=== PATIENT | male | born 1970 | race Caucasian/White ===

== ENCOUNTER 2025-01-23 12:43 | Outpatient (REF) | payer OTHER, SELFPAY ==
[2025-01-23 18:28] LABS: MANUAL DIFF FLAG NO
[2025-01-23 18:34] LABS: Hematocrit 46.4 % (42.0-52.0); Hemoglobin 15.7 g/dl (14.0-18.0); Imm Gran Abs Auto 0.02 X10*3/uL (0.00-0.03); Imm Gran Pct Auto 0.2 % (0.0-0.4); Lymphocytes Absolute Auto 4.1 X10*3/uL (1.2-4.9); Mean Corpuscular HGB Conc 33.8 g/dl (31.0-36.0); Mean Corpuscular Hemoglobin 31.0 pg (27.0-33.0); Mean Corpuscular Volume 91.7 fL (80.0-98.0); NRBC Abs Auto 0.000 X10*3/uL (0.0-0.012); NRBC Pct Auto 0.0 /100WBC (0.0-0.2); Platelet Count 368 X10*3/uL (160-400); Red Blood Count 5.06 X10*6/uL (4.60-5.80); White Blood Count 9.9 X10*3/uL (4.8-10.8)
[2025-01-23 18:40] LABS: Appearance Urine Clear; Glucose Urine UA Negative (Negative); PH 6.5 (5.0-9.0); Specific Gravity - Urine 1.020 (1.005-1.025)
[2025-01-23 18:57] LABS: Alanine Aminotransferase 52 U/L (0-40); Albumin Level 4.6 g/dL (3.5-5.0); Alkaline Phosphatase 110 U/L (39-117); Anion Gap 11 (12-20); Aspartate Amino Transferase 37 U/L (5-37); Blood Urea Nitrogen 10 mg/dL (9-16); Calcium 9.3 mg/dL (8.4-10.2); Carbon Dioxide 22 mmol/L (22-29); Chloride 110 mmol/L (96-108); Cholesterol 302 mg/dL (<200); Estimated Glomerular Filt Rate > 60; HDL Cholesterol 43 mg/dL (>40); Magnesium 2.2 mg/dL (1.6-2.6); Potassium 4.2 mmol/L (3.3-5.1); Sodium 139 mmol/L (135-145); Total Protein 7.1 g/dL (6.5-8.0); Triglycerides 161 mg/dL (<150)
[2025-01-23 19:18] LABS: Folate 11.6 ng/mL (> or = 4.0); Vitamin B12 392 pg/mL (200-900)
[2025-01-24 13:26] LABS: HBS Num1 0.24 mIU/mL (0-7.99); HIV Num 1 0.04 S/CO (0.00-0.99); ~HepC Num1 0.05 S/CO (0.00-0.79); ~Hepatitis B Surface Antibody NONREACTIVE (Nonreactive); ~Hepatitis C Antibody Nonreactive (Nonreactive)
[2025-01-25 03:55] LABS: HBsAGNum1 0.39 S/CO (0.00-0.99); Hepatitis B Surface Antigen Negative (Negative)
[2025-01-28 06:09] LABS: VITAMIN D (1,25 OH) D3 36 pg/mL; Vit D (1,25-Dihydroxy) Total 36 pg/mL (18-72); Vitamin D (1,25 OH) D2 <8 pg/mL
== END 2025-01-23 12:44 | disposition home or self-care (01) ==
LOC: HO.HKASLDS 12:43
PROVIDERS: PCP Student in an Organized Health Care Education/Training Program; Visit Provider Student in an Organized Health Care Education/Training Program
DX: E66.3 Overweight (principal); F10.21 Alcohol dependence, in remission; M65.30 Trigger finger, unspecified finger; G56.00 Carpal tunnel syndrome, unspecified upper limb; F17.210 Nicotine dependence, cigarettes, uncomplicated; F32.A Depression, unspecified; F41.9 Anxiety disorder, unspecified; R03.0 Elevated blood-pressure reading, without diagnosis of hypertension; D17.9 Benign lipomatous neoplasm, unspecified; Z98.890 Other specified postprocedural states; Z68.27 Body mass index [BMI] 27.0-27.9, adult
CPT/HCPCS: 36415; 80053; 80061; 81003; 82607; 82652; 82746; 83036; 83735; 84443; 85025; 86706; 86803; 87340; 87389; 99202

== ENCOUNTER 2025-01-23 12:43 | Outpatient (AMB) | payer MEDICAID, SELFPAY ==
--- NOTE | 2025-01-23 12:57 | A.OFFPC_ITS ---
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 Transitional Care Required: No Accompanied by: Self / Same As Patient Allergies meperidine (From Demerol) Adverse Reaction (Unknown, Verified 01/23/25 13:08) ill Tobacco use date assessed: 01/23/25 Dental Screening Dental Screen Date: 01/23/25 Did you have a dental visit in the last 12 months?: Yes Did you have a dental problem in the last 6 months where you did not have access to dental care?: No Was dental information given to patient?: No HPI HPI Comments History of Present Illness Details Consent Patient was informed and verbally consented to the use of an ambient scribe for clinic note documentation during this visit. History of Present Illness The patient is a 54-year-old male presenting with a wellness visit and management of chronic conditions, including trigger finger and carpal tunnel syndrome. Trigger finger: The patient reports bilateral trigger finger, with the right hand currently clicking and the left hand on its way to clicking. Cortisone injections have been effective in managing symptoms in the past. The condition worsens with c older weather, leading to increased stiffness and discomfort. Carpal tunnel syndrome: The patient has a history of carpal tunnel syndrome, having undergone surgery twice on the right hand. The patient reports regaining sensation post-surgery, but symptoms have recurred over time. The patient has received wrist injections for symptom management. History of multiple hand fractures: The patient has a history of multiple hand fractures, including fractures from punching a wall and skateboarding accidents. The patient has been advised that surgical intervention could restructure the hand but would require a six-month recovery period in a cast, which the patient is unwilling to undergo. Tobacco use disorder: The patient has a long history of smoking, currently smoking a pack to a pack and a half per day. The patient expresses a desire to quit smoking and has previously attempted cessation using patches and lozenges. Alcohol use disorder in remission: The patient is in recovery from alcohol use disorder, attending Alcoholics Anonymous meetings daily and maintaining sobriety for 85 days. The patient has a history of relapses but is currently supported by a fellowship and a sponsor. Depression: The patient reports experiencing depression, exacerbated by a recent breakup and relocation. The patient is currently engaged in therapy sessions to manage symptoms. Anxiety: The patient reports anxiety, which contributes to smoking habits as a coping mechanism. The patient is receiving therapy to address anxiety symptoms. Lipoma: The patient has a lipoma near the left ear, which has grown slightly over time but is not causing significant concern. 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 - Housing: Recently moved from [place] to a farm in [facility]. - Substance use: History of tobacco use, currently smoking a pack to a pack and a half per day. In recovery from alcohol use disorder, attending AA meetings daily. - Exercise: Engages in skateboarding, th ough with caution due to past injuries. Review of Systems - Musculoskeletal: Reports bilateral tri gger finger and history of carpal tunnel syndrome. - Dermatological: Reports a lipoma near the left ear. - Psychological: Reports depression and anxiety. - Respiratory: Denies snoring or waking up in the middle of the night. - Gastrointestinal: Denies gastroesophag eal reflux. 10-point ROS reviewed and negative excep t as noted in HPI Past Medical History - Carpal tunnel syndrome - History of multiple hand fractures - History of diverticulitis - Tobacco use disorder - Alcohol use disorder in remission - Depression - Anxiety Health Maintenance - Colon cancer screening with stool test , last performed a year ago, next due in two years. Physical Exam General: Well-appearing, in no acute distress. Vital signs: Within normal limits. HEENT: Normocephalic, atraumatic. PERRLA, EOMI. Conjunctiva clear, sclera anicteric. Oropharynx clear, mucous membranes moist. TMs intact bilaterally. Notable for a growth on the left side by the ear, progressively getting a little bigger. Neck: Supple, no lymphadenopathy, no thyromegaly, no JVD or carotid bruits. Cardiovascular: RRR, normal S1/S2, no murmurs, rubs, or gallops. Peripheral pulses 2+ and symmetric. No edema. Respiratory: Lungs clear to auscultation bilaterally, no wheezes, rales, or rhonchi. Normal effort. Abdomen: Soft, non-tender, non-distended. Normoactive bowel sounds. No hepatosplenomegaly, no masses. MSK: Full range of motion, no joint swelling or deformity. Notable for bilateral trigger finger and history of carpal tunnel syndrome with previous surgeries and injections. Right wrist with history of multiple fractures and injections. Skin: Warm, dry, intact. No rashes, lesions, or pallor. Neuro: Alert and oriented x3. Cranial nerves II-XII intact. Strength 5/5 throughout. Sensation intact. Reflexes 2+ symmetric. Normal coordination and gait. Psych: Appropriate mood and affect. Normal judgment and insight. History of de pression and anxiety, currently in therapy. Plan 1. Trigger Finger - Plan to administer cortisone injection s during the follow-up visit to manage symptoms. 2. Carpal Tunnel Syndrome - Consideration for wrist injections dur ing the follow-up visit to alleviate symptoms. 3. Tobacco Use Disorder - Initiate nicotine replacement therapy with 21 mg patches and lozenges to aid smoking cessation. 4. Alcohol Use Disorder In Remission - Continue attending Alcoholics Anonymou s meetings and maintain current support system. 5. Depression - Continue therapy sessions to manage de pressive symptoms. 6. Anxiety - Continue therapy sessions to address a nxiety symptoms. 7. Lipoma - Monitor the lipoma for any changes in size or symptoms. Discussion Notes I discussed with the patient the management of his trigger finger and carpal tunnel syndrome, including the option of cortisone injections during the follow- up visit. We also talked about initiating nicotine replacement therapy to aid in smoking cessation, and the importance of continuing therapy for depression and anxiety. The patient was informed about the need for regular monitoring of the lipoma near his ear. Follow-up was scheduled to review lab results and administer injections. Patient Instructions - Use nicotine patches and lozenges as d irected to help quit smoking. - Attend follow-up appointment in two we eks for lab results and injections. - Continue attending therapy sessions fo r depression and anxiety. - Monitor the lipoma for any changes and report if it grows or becomes painful. Medical Decision Making The patient presents with multiple chronic conditions, including trigger finger and carpal tunnel syndrome, which have been managed with cortisone injections. Given the patient's history of smoking and desire to quit, nicotine replacement therapy was recommended. The patient's depression and anxiety are being managed with ongoing therapy. Monitoring of the lipoma was advised due to its slight growth. The plan includes follow-up for lab results and further management of musculoskeletal symptoms. Total time spent caring for the patient today was 30 minutes. This includes time spent before the visit reviewing the chart, time spent documenting, and time spent reviewing laboratory results, diagnostic imaging, medications, performing a medically necessary evaluation, counseling on diagnoses, care coordination, ordering appropriate tests, ordering appropriate medications. [facility] Family History (Updated 01/23/25 @ 13:00 by Soto Ford MA) Father No problems noted. Mother No problems noted. Social History Housing: House Patient Tobacco Use Status: Current everyday Tobacco user Cigarette Packs Per Day: 1 service: No Current occupational status: employed Cognitive needs: No Hearing needs: No Vision needs: Yes (rx glasses) Questionnaire PHQ-9 Over the last 2 weeks, how often have you been bothered by any of the following problems? 1. Little interest or pleasure in doing things: not at all 2. Feeling down, depressed, or hopeless: not at all 3. Trouble falling or staying asleep, or sleeping too much: not at all 4. Feeling tired or having little energy: not at all 5. Poor appetite or overeating: several days 6. Feeling bad about yourself - or that you are a failure or have let yourself or your family down: several days 7. Trouble concentrating on things, such as reading the newspaper or watching television: several days 8. Moving or speaking so slowly that other people could have noticed. Or the opposite - being so fidgety or restless that you have been moving around a lot more than usual: not at all 9. Thoughts that you would be better off or of hurting yourself in some way: not at all Total score: 3 Depression Screening Interpretation: Negative Depression Screening Done: Yes Source: Developed by Drs. Rey Pan, Suni Pal, Michele Burnett and colleagues, with an educational esteban from [employer]. Thrive Questionnaire Date Thrive assessed: 01/23/25 I am a: Patient What is your living situation today?: I have a steady place to live Within the past 12 months, did the food you bought not last and you didn't have the money to get more?: Never true Within the past 12 months, did you worry whether your food would run out before you got money to buy more?: Never true Do you have trouble paying for medicines?: Yes Do you have trouble getting transportation to medical appointments?: No Do you have trouble paying your heating and electricity bill?: No Do you have trouble taking care of your child, family member or friend?: No Are you currently unemployed and looking for a job?: No Are you interested in more education?: Yes Please select the resources that you would like help with: None Currently or been in a relationship where the following occur: No concerns reported THRIVE Score: 0 AUDIT C Alcohol Use Questionnaire (AUDIT-C) 1. How often do you have a drink containing alcohol?: Never Total Score: 0 JEFFRY-7 AMB Questionnaire JEFFRY-7 Date JEFFRY - 7 assessed: 01/23/25 Feeling nervous, anxious, or on edge: 1 = Several days Not being able to stop or control worryin = Several days Worrying too much about different things: 1 = Several days Trouble relaxin = Several days Being so restless that it is hard to sit still: 1 = Several days Becoming easily annoyed or irritable: 1 = Several days Feeling afraid as if something awful might happen: 1 = Several days Total JEFFRY-7 score (0-4 normal; 5-9 mild; 10-14 moderate; 15-21 severe): 7 Source: Developed by Drs. Rey Pan, Suni Pal, Michele Burnett and colleagues, with an educational esteban from [employer]. Physical exam (Primary Care) BMI result Body Mass Index 27.3 Tobacco/Smoking Status: Tobacco use Status Tobacco use date assessed 01/23/25 01/23/25 13:01 Patient Tobacco Use Status Never used Tobacco 01/23/25 13:01 PHQ-9: PHQ-9 Score PHQ-9: Total score 3 01/23/25 13:01 Depression Screening Interpretation: Negative Thrive Assessment: Date of Thrive Assessment Date Thrive assessed 01/23/25 01/23/25 13:01 Currently or been in a relationship where the following occur: No concerns reported Coding Level of Care Code New Pt Level 4 (99008) Diagnoses Overweight (BMI 25.0-29.9) E66.3 History of nicotine use Z87.891 Carpal tunnel syndrome G56.00 Trigger finger M65.30 History of surgery on left wrist Z98.890 History of ankle surgery Z98.890 Elevated blood pressure reading R03.0 Lipoma D17.9 Anxiety F41.9 Depression F32.A Alcohol use disorder F10.90 Assessment & Plan Assessment & Plan (1) Overweight (BMI 25.0-29.9): Code(s): E66.3 - Overweight (2) History of nicotine use: Code(s): Z87.891 - Personal history of nicotine dependence (3) Carpal tunnel syndrome: Code(s): G56.00 - Carpal tunnel syndrome, unspecified upper limb (4) Trigger finger: Code(s): M65.30 - Trigger finger, unspecified finger (5) History of surgery on left wrist: Code(s): Z98.890 - Other specified postprocedural states (6) History of ankle surgery: Code(s): Z98.890 - Other specified postprocedural states (7) Elevated blood pressure reading: Code(s): R03.0 - Elevated blood-pressure reading, without diagnosis of hypertension (8) Lipoma: Code(s): D17.9 - Benign lipomatous neoplasm, unspecified (9) Anxiety: Code(s): F41.9 - Anxiety disorder, unspecified (10) Depression: Code(s): F32.A - Depression, unspecified (11) Alcohol use disorder: Code(s): F10.90 - Alcohol use, unspecified, uncomplicated Plan Orders: Orders Comprehensive Met. Panel Today Z13.9 - Encounter for screening, unspecified Hemoglobin A1c Today Z13.9 - Encounter for screening, unspecified Hepatitis B Surface Antibody Today Z13.9 - Encounter for screening, unspecified Lipid Panel Today Z13.9 - Encounter for screening, unspecified TSH reflex Free T4 Today Z13.9 - Encounter for screening, unspecified Complete Blood Count Auto Diff Today Z13.9 - Encounter for screening, unspecified Hepatitis B Surface Antigen Today Z13.9 - Encounter for screening, unspecified Hepatitis C Antibody Today Z13.9 - Encounter for screening, unspecified HIV Ab/Ag Today Z13.9 - Encounter for screening, unspecified Magnesium Today Z13.9 - Encounter for screening, unspecified Vitamin B12 and Folate Today Z13.9 - Encounter for screening, unspecified Vitamin D 1,25 dihydroxy Today Z13.9 - Encounter for screening, unspecified UA CC w/rflx Micro + Cult Today Z13.9 - Encounter for screening, unspecified Medications: New nicotine (polacrilex) 4 mg buccal Q6H PRN 81 ea 0RF nicotine cravings nicotine 1 patch transdermal Q24H 28 ea 0RF
[2025-01-23 13:06] VITALS: BP 144/94; PULSE 87; RESP 16; TEMP 36.7; O2SAT 95; BMI 27.3
== END 2025-01-23 13:52 | disposition home or self-care (01) ==
LOC: HO.HMCFMS 12:44
PROVIDERS: PCP Student in an Organized Health Care Education/Training Program; Visit Provider Student in an Organized Health Care Education/Training Program
DX: E66.3 Overweight (principal); Z87.891 Personal history of nicotine dependence; G56.00 Carpal tunnel syndrome, unspecified upper limb; M65.30 Trigger finger, unspecified finger; Z98.890 Other specified postprocedural states; R03.0 Elevated blood-pressure reading, without diagnosis of hypertension; D17.9 Benign lipomatous neoplasm, unspecified; F41.9 Anxiety disorder, unspecified; F32.A Depression, unspecified; F10.90 Alcohol use, unspecified, uncomplicated

== ENCOUNTER 2025-02-06 14:09 | Outpatient (AMB) | payer OTHER, SELFPAY ==
[2025-02-06 14:13] VITALS: BP 147/88; PULSE 98; RESP 16; TEMP 36.4; O2SAT 95; BMI 27.0
--- NOTE | 2025-02-06 14:13 | A.OFFPC_ITS ---
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 Hyperlipidemia: The patient has newly identified hyperlipidemia based on recent laboratory results. His labs showed triglycerides at 161 mg/dL, total cholesterol at 203 mg/dL, and LDL cholesterol at 227 mg/dL. trigger finger of bilateral thumbs chronic history of trigger finger refuses surgery and has received trigger finger injections in the past osteoarthritis of right wrist same as above Diagnostic Results: - CBC: White blood cells, red blood cell s, platelets, and hematocrit are normal. - Eosinophils: Slightly elevated at 4.2 (cutoff 4.0), indicative of allergies. - Metabolic Panel: Sodium and potassium are normal. - Kidney function: Normal. - Hemoglobin A1c and glucose: Normal, ru ling out prediabetes and diabetes. - Electrolytes: Calcium and magnesium ar e normal. - Lipid Panel: Triglycerides are elevate d at 161 mg/dL (normal <150), total cholesterol is elevated at 203 mg/dL (normal <200), and LDL cholesterol is elevated at 227 mg/dL (normal <100). - Vitamin D, thyroid, folate, B12: All n ormal. - Urinalysis: Normal. - Infectious Disease Screen: Hepatitis B , C, and HIV are negative. Past Medical History - Allergies Health Maintenance - Patient's recent lab results were revi ewed. - Laboratory screening was negative for diabetes, kidney disease, hepatitis, and HIV. - A new diagnosis of hyperlipidemia was identified and discussed. - A referral will be made to a [employer] dietitian for nutritional counseling. [facility] Medical History (Updated 02/06/25 @ 14:48 by Mariano Hernandez MD) Trigger finger Arthritis Joint pain Hyperlipidemia Family History (Updated 01/23/25 @ 13:00 by Soto Ford MA) Father No problems noted. Mother No problems noted. Social History Housing: House Patient Tobacco Use Status: Current everyday Tobacco user Cigarette Packs Per Day: 1 service: No Current occupational status: employed Cognitive needs: No Hearing needs: No Vision needs: Yes (rx glasses) Questionnaire Thrive Questionnaire Date Thrive assessed: 01/23/25 I am a: Patient What is your living situation today?: I have a steady place to live Within the past 12 months, did the food you bought not last and you didn't have the money to get more?: Never true Within the past 12 months, did you worry whether your food would run out before you got money to buy more?: Never true Do you have trouble paying for medicines?: Yes Do you have trouble getting transportation to medical appointments?: No Do you have trouble paying your heating and electricity bill?: No Do you have trouble taking care of your child, family member or friend?: No Do you have trouble with day-to-day activities such as bathing, preparing meals, shopping, managing finances, etc.?: No Are you currently unemployed and looking for a job?: No Are you interested in more education?: Yes Please select the resources that you would like help with: None Currently or been in a relationship where the following occur: No concerns reported THRIVE Score: 0 AUDIT C Alcohol Use Questionnaire (AUDIT-C) 2. How many drinks containing alcohol do you have on a typical day when you are drinking?: 1 or 2 3. How often do you have six or more drinks on one occasion?: Never Total Score: 0 JEFFRY-7 AMB Questionnaire JEFFRY-7 Date JEFFRY - 7 assessed: 01/23/25 Source: Developed by Drs. Rey Pan, Suni Pal, Michele Burnett and colleagues, with an educational esteban from [employer]. Review of Systems Narrative Review of Systems - Allergic/Immunologic: Positive for allergies, as suggested by lab findings. 10-point ROS reviewed and negative except as noted in HPI Physical exam (Primary Care) Vital Signs: Last Vital Signs Temp 97.6 F 02/06/25 14:13 Pulse 98 02/06/25 14:13 Resp 16 02/06/25 14:13 BP 147/88 H 02/06/25 14:13 Pulse Ox 95 02/06/25 14:13 Oxygen Delivery Method Room Air 02/06/25 14:13 BMI result Body Mass Index 27.0 Tobacco/Smoking Status: Tobacco use Status Tobacco use date assessed 01/23/25 02/06/25 14:13 Patient Tobacco Use Status Current everyday Tobacco 02/06/25 14:13 Thrive Assessment: Date of Thrive Assessment Date Thrive assessed 01/23/25 02/06/25 14:13 Currently or been in a relationship where the following occur: No concerns reported Narrative Physical Exam General: Well-appearing, in no acute distress. Vital signs: Within normal limits. HEENT: Normocephalic, atraumatic. PERRLA, EOMI. Conjunctiva clear, sclera anicteric. Oropharynx clear, mucous membranes moist. TMs intact bilaterally. Neck: Supple, no lymphadenopathy, no thyromegaly, no JVD or carotid bruits. Cardiovascular: RRR, normal S1/S2, no murmurs, rubs, or gallops. Peripheral pulses 2+ and symmetric. No edema. Respiratory: Lungs clear to auscultation bilaterally, no wheezes, rales, or rhonchi. Normal effort. Abdomen: Soft, non-tender, non-distended. Normoactive bowel sounds. No hepatosplenomegaly, no masses. MSK: Full range of motion, no joint swelling or deformity. Normal gait. nodules palpated a metacarpalphalangeal crease Skin: Warm, dry, intact. No rashes, lesions, or pallor. Neuro: Alert and oriented x3. Cranial nerves II-XII intact. Strength 5/5 throughout. Sensation intact. Reflexes 2+ symmetric. Normal coordination and gait. Psych: Appropriate mood and affect. Normal judgment and insight. Coding Level of Care Code Est Pt Level 4 (54847) Diagnoses Joint pain M25.50 Assessment & Plan Assessment & Plan (1) Joint pain: Code(s): M25.50 - Pain in unspecified joint Plan Consent Patient was informed and verbally consented to the use of an ambient scribe for clinic note documentation during this visit. Plan 1. Hyperlipidemia - Prescribed rosuvastatin 20 mg to be taken once daily at night to lower cholesterol. - Discussed the medication's additional benefits, including protection for the heart and kidneys. - A referral is being sent to a registered dietitian for patient education on diet. 2. Trigger finger/osteoarthritis of right wrist. - Administered a total of three injections as requested by the patient, including one to the wrist. The patient presented with symptomatic trigger finger involving the bilateral thumbs. After confirming the diagnosis of stenosing flexor tenosynovitis (ICD- 10: M65.3X), informed consent was obtained, and risks, benefits, and alternatives were reviewed, including infection, bleeding, tendon rupture, transient pain, hypopigmentation, and recurrence. The skin over the A1 franklin was prepped with chlorhexidine and allowed to dry. Painease topical anesthetic spray was applied for cutaneous anesthesia. Using a 25- to 27-gauge needle, a mixture of triamcinolone acetonide (Kenalog-40) 1ml combined with 1 mL of 1% lidocaine plain was injected into the flexor tendon sheath just proximal to the metacarpophalangeal crease, with the digit slightly extended. There was minimal resistance to injection, no blanching, and no immediate complications. The site was dressed with a sterile adhesive bandage. The patient tolerated the procedure well. They were advised to rest the finger for 24?48 hours, then resume gentle [id number] exercises. Follow-up was recommended in 4?6 weeks or sooner for recurrence of pain, swelling, or signs of infection. The patient was evaluated for chronic right wrist pain due to osteoarthritis (ICD-10: M19.03X . After discussing risks, benefits, and alternatives, including infection, bleeding, steroid flare, skin changes, and transient hyperglycemia, verbal consent was obtained. The dorsal wrist was prepped with chlorhexidine and allowed to dry, and Painease topical anesthetic spray was applied to the injection site. Using a dorsal approach just distal to Armin?s tubercle between the third and fourth extensor compartments, a 25-gauge needle was inserted perpendicular to the skin into the radiocarpal joint. After confirming intra- articular placement by lack of resistance, a mixture of triamcinolone acetonide 40 mg 1 mL and 1 mL of 1% lidocaine plain was injected smoothly. There were no immediate complications, and the patient tolerated the procedure well. A small adhesive dressing was applied. The patient was instructed to rest the wrist for 24?48 hours, apply ice for soreness, and monitor for redness, swelling, or fever. Follow-up was arranged in 4?6 weeks to assess response. Discussion Notes I reviewed the patient's recent lab work. I explained that while most results were normal, his cholesterol levels, including triglycerides, total cholesterol, and LDL cholesterol, were elevated. I recommended initiating treatment with rosuvastatin 20 mg once daily to manage the hyperlipidemia Additionally, I informed the patient that I am placing a referral to a registered dietitian for dietary counseling. The patient verbally agreed to the treatment plan. Patient Instructions - Take one tablet of rosuvastatin (Crestor) 20 mg by mouth once a day at night. - You will be contacted by a registered dietitian who will provide information and education on what and how to eat. Medical Decision Making The patient is a 54-year-old male who presented to review lab results. His labs revealed significant hyperlipidemia, with a triglyceride level of 161 mg/dL, total cholesterol of 203 mg/dL, and an LDL of 227 mg/dL. Given the elevated lipid panel, the decision was made to initiate statin therapy for primary cardiovascular prevention. Rosuvastatin 20 mg was chosen for its efficacy in lowering LDL and its known benefits in protecting the heart and kidneys. To support lifestyle modifications, a referral was placed for a registered dietitian to provide nutritional counseling. Total time spent caring for the patient today was 30 min minutes. This includes time spent before the visit reviewing the chart, time spent documenting, and time spent reviewing laboratory results, diagnostic imaging, medications, performing a medically necessary evaluation, counseling on diagnoses.. Orders: Orders AMB Joint Injection/Aspiration Today M19.90 - Unspecified osteoarthritis, unspecified site, M25.50 - Pain in unspecified joint AMB Trigger Finger Injection Today M65.30 - Trigger finger, unspecified finger AMB Trigger Finger Injection Today M65.30 - Trigger finger, unspecified finger Referrals Nurse Navigator Referral E78.5 - Hyperlipidemia, unspecified Medications: New rosuvastatin 20 mg (2 x 10 mg) PO DAILY 90 tabs 0RF Kenalog (triamcinolone acetonide) 40 mg intra-articular ONCE 1 mL 0RF NS M19.90 - Unspecified osteoarthritis, unspecified site, M25.50 - Pain in unspecified joint Kenalog (triamcinolone acetonide) 40 mg Tendon Sheath Inj. ONCE 1 mL 0RF NS M65.30 - Trigger finger, unspecified finger lidocaine (PF) 1 mL Infiltration ONCE 2 mL 0RF M19.90 - Unspecified osteoarthritis, unspecified site, M25.50 - Pain in unspecified joint Kenalog (triamcinolone acetonide) 40 mg Tendon Sheath Inj. ONCE 1 mL 0RF NS M65.30 - Trigger finger, unspecified finger
== END 2025-02-06 14:45 | disposition home or self-care (01) ==
PROVIDERS: PCP Student in an Organized Health Care Education/Training Program; Visit Provider Student in an Organized Health Care Education/Training Program
DX: M25.50 Pain in unspecified joint (principal)

== ENCOUNTER → 2025-02-06 14:09 | Outpatient (BNVA) | payer OTHER, SELFPAY | PROVIDERS: Visit Provider Student in an Organized Health Care Education/Training Program | DX: M65.312 Trigger thumb, left thumb (principal); M65.311 Trigger thumb, right thumb; M19.031 Primary osteoarthritis, right wrist; M25.50 Pain in unspecified joint; E78.5 Hyperlipidemia, unspecified | CPT/HCPCS: 99212 ==

== ENCOUNTER → 2025-02-21 16:24 | Outpatient (BNVA) | payer OTHER, SELFPAY | PROVIDERS: PCP Student in an Organized Health Care Education/Training Program | DX: Z71.3 Dietary counseling and surveillance (principal); E78.00 Pure hypercholesterolemia, unspecified | CPT/HCPCS: 99211 ==